=== PATIENT | female | born 1935 | race Caucasian/White ===

== ENCOUNTER 2018-06-30 10:46 | Outpatient (CLI) | payer MEDICARE ==
--- NOTE | 2018-06-30 12:53 | RAD ---
RIGHT HIP TWO VIEWS: HISTORY: Pain. 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 There is deformity of the superior aspect of the femoral head. 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 POS: [facility]
--- NOTE | 2018-06-30 12:57 | RAD ---
LUMBAR SPINE 2 VIEWS: Date: 06/30/18 COMPARISON: 09/08/10. HISTORY: Low back pain. FINDINGS: Five lumbar-type vertebral bodies. There is approximately 1.0 cm of anterolisthesis of L5 upon S1. Se mallory loss of disc space height at multiple levels with near complete fusion at the L2-L3 level. The o verall degree of degenerative change has progressed when compared to the previous examination. The de gree of spondylolisthesis of L5 upon S1 is stable. IMPRESSION: Worsening degenerative change. POS: [facility]
== END 2018-06-30 10:47 | disposition home or self-care (01) ==
LOC: BICRAD 10:46
PROVIDERS: ATTEND Internal Medicine
DX: M54.5 Low back pain (principal); M25.551 Pain in right hip; M47.816 Spondylosis without myelopathy or radiculopathy, lumbar region; M16.11 Unilateral primary osteoarthritis, right hip
CPT/HCPCS: 72100